=== PATIENT | female | born 1995 | race Caucasian/White ===

== ENCOUNTER 2017-01-08 03:00 | Emergency (ER) | payer BC ==
[~2017-01-08] VITALS: Ht 172.7 cm; Wt 64.4 kg
[2017-01-08] MEDS ORDERED: ONDANSETRON 2MG/ML, 2ML ONE (03:14)
[2017-01-08] MEDS ORDERED: ONDANSETRON 2MG/ML, 2ML IVPush ONE (03:30)
[2017-01-08 08:08] VITALS: BP 109/78
== END 2017-01-08 08:10 | disposition home or self-care (01) ==
LOC: ED 06:09
DX: F10.120 Alcohol abuse with intoxication, uncomplicated (principal)
CPT/HCPCS: 96374; 99284; J2405